=== PATIENT | female | born 1955 | race Caucasian/White ===

== ENCOUNTER 2019-04-03 05:57 | Inpatient (IN) | payer OTHER ==
[2019-04-03] MEDS: CEFAZOLIN 2 GM/50 ML (PMX) 50 ML IVPB (06:00)
[2019-04-03] MEDS: LACTATED RINGER'S 1,000 ML IV (07:03)
[2019-04-03] MEDS ORDERED: CEFAZOLIN 1 GM INJ (07:27)
[2019-04-03] MEDS ORDERED: PROPOFOL 20 ML (07:27)
[2019-04-03] MEDS ORDERED: MIDAZOLAM 1 MG/ML 2 ML INJ (07:27)
[2019-04-03] MEDS ORDERED: ROCURONIUM 50 MG INJ (07:27)
[2019-04-03] MEDS ORDERED: ONDANSETRON 4 MG INJ (07:51)
[2019-04-03] MEDS ORDERED: DEXAMETHASONE 4 MG/ML 5 ML INJ (07:51)
[2019-04-03] MEDS ORDERED: METOCLOPRAMIDE 10 MG INJ (07:51)
[2019-04-03] MEDS ORDERED: hydrALAzine 20 MG INJ IV (08:30)
[2019-04-03] MEDS ORDERED: HYDROmorphONE 1 MG/5 ML IV SYRINGE IV (08:30)
[2019-04-03] MEDS ORDERED: METOCLOPRAMIDE 10 MG INJ IV (08:30)
[2019-04-03] MEDS ORDERED: LABETALOL HCL 20MG INJ IV (08:30)
[2019-04-03] MEDS ORDERED: FENTAnyl 50 MCG/ML VIAL IV ×3 (08:30)
[2019-04-03] MEDS ORDERED: OXYCODONE/ACETAMINOPHEN (5/325) TAB PO (08:30)
[2019-04-03] MEDS ORDERED: EPHEDrine 25 MG/5 ML SYG IV (08:30)
[2019-04-03] MEDS: GELATIN SIZE 100 SPONGE (09:16)
[2019-04-03] MEDS: THROMBIN 5000 UNIT (RECOTHROM) VIAL (09:17)
[2019-04-03] MEDS: POLYMYXIN/BACITRACIN 1L IRRIG (09:17)
[2019-04-03] MEDS: HEMOSTATIC MATRIX/ THROMBIN 1 EA SYG ZFS ×3 (09:18→11:51)
[2019-04-03] MEDS: BUPIVACAINE 0.5%/EPI (SDV) 30 ML INJ (09:20)
[2019-04-03] MEDS: BUPIVACAINE 0.25%/EPI (SDV) 30 ML INJ (09:40)
[2019-04-03] MEDS ORDERED: SUGAMMADEX SODIUM 200 MG/2 ML VIAL IV (10:28)
[2019-04-03] MEDS: POLYMYXIN/BACITRACIN 1L IRRIG IRR (11:31)
[2019-04-03] MEDS ORDERED: NALOXONE (0.4 MG/ML) INJ IV ×2 (13:00)
[2019-04-03] MEDS ORDERED: PROCHLORPERAZINE 10 MG TAB PO (13:00)
[2019-04-03] MEDS ORDERED: NACL 0.9% 3 ML SYG IV (13:00)
[2019-04-03] MEDS: HYDROmorphONE 1 MG/5 ML IV SYRINGE IV ×2 (13:03→13:11)
[2019-04-03] MEDS: DIPHENHYDRAMINE 50 MG INJ IV (13:03)
[2019-04-03] MEDS: ONDANSETRON 4 MG INJ IV (13:03)
[2019-04-03] MEDS: MEPERIDINE 25 MG INJ IV (13:03)
[2019-04-03] MEDS: HYDROmorphONE 0.2 MG/ML PCA IV (13:10)
[2019-04-03 13:32] LABS: ADD MAN DIFF? NO
[2019-04-03 13:33] LABS: WHITE BLOOD COUNT 12.2 10^3/ul (4.8-10.8)
[2019-04-03 13:33] LABS: BASOPHILS % 0.1 % (0.0-2.0); HEMATOCRIT 29.1 % (37.0-47.0); HEMOGLOBIN 9.7 g/dl (12.0-16.0); LYMPHOCYTES # 0.6 10^3/ul (0.8-2.9); LYMPHOCYTES % 4.9 % (15.0-51.0); MEAN CORPUSCULAR HEMOGLOBIN 31.6 pg (29.0-33.0); MEAN CORPUSCULAR HGB CONC 33.3 g/dl (32.0-37.0); MEAN CORPUSCULAR VOLUME 94.8 fl (82.0-101.0); MEAN PLATELET VOLUME 9.2 fl (7.4-10.4); MONOCYTE # 0.1 10^3/ul (0.3-0.9); MONOCYTES % 0.7 % (0.0-11.0); NEUTROPHIL # 11.4 10^3/ul (1.6-7.5); NEUTROPHILS % 93.5 % (39.0-77.0); PLATELET COUNT 196 10^3/UL (140-415); RED BLOOD COUNT 3.07 10^6/ul (4.20-5.40); RED CELL DISTRIBUTION WIDTH 13.1 % (11.5-14.5)
[2019-04-03 13:40] LABS: HOLD TRANSMISSIONS 1
[2019-04-03] MEDS: SOD CHLORIDE 0.45% 1,000 ML IV (14:12)
[2019-04-03] MEDS: CEFAZOLIN 1 GM/50 ML (PMX) 50 ML IVPB (17:39)
[2019-04-03] MEDS: NEOMYC/POLYMYX/BACIT 30 GM OINT TOP (18:37)
[2019-04-03] MEDS ORDERED: MONTELUKAST 10 MG TAB PO (19:00)
[2019-04-03] MEDS: MONTELUKAST 10 MG TAB PO (20:50)
[2019-04-03] MEDS: LATANOPROST 0.005% 2.5 ML OPH RIGHT EYE (22:42)
[2019-04-04] MEDS: CEFAZOLIN 1 GM/50 ML (PMX) 50 ML IVPB ×3 (00:27→12:32)
[2019-04-04] MEDS: SOD CHLORIDE 0.45% 1,000 ML IV ×4 (01:51→22:52)
[2019-04-04] MEDS: HYDROmorphONE 0.2 MG/ML PCA IV ×2 (04:54→22:54)
[2019-04-04 05:19] LABS: HEMATOCRIT 32.3 % (37.0-47.0); HEMOGLOBIN 10.6 g/dl (12.0-16.0)
[2019-04-04 05:44] LABS: ANION GAP 5 (5-13); BLOOD UREA NITROGEN 10 mg/dl (7-20); CALCIUM 8.4 mg/dl (8.4-10.2); CARBON DIOXIDE 28 mmol/L (21-31); CHLORIDE 105 mmol/L (97-110); Estimated GFR > 60 mL/min (>60); GLUCOSE 110 mg/dl (70-220); POTASSIUM 4.8 mmol/L (3.5-5.1); SODIUM 138 mmol/L (135-144)
[2019-04-04] MEDS: NEOMYC/POLYMYX/BACIT 30 GM OINT TOP ×3 (05:55→21:53)
[2019-04-04] MEDS: DOCUSATE SODIUM 100 MG CAP PO ×2 (08:49→21:31)
[2019-04-04] MEDS: ACETAMINOPHEN 325 MG TAB PO (21:31)
[2019-04-04] MEDS: MONTELUKAST 10 MG TAB PO (21:31)
[2019-04-04] MEDS: LATANOPROST 0.005% 2.5 ML OPH RIGHT EYE (21:31)
[2019-04-04] MEDS: NAPHAZOLINE/PHENIRAMINE 15 ML OPH BOTH EYES (21:53)
[2019-04-05] MEDS: ACETAMINOPHEN 325 MG TAB PO (05:14)
[2019-04-05] MEDS: NEOMYC/POLYMYX/BACIT 30 GM OINT TOP ×3 (06:22→21:12)
[2019-04-05] MEDS: DOCUSATE SODIUM 100 MG CAP PO ×2 (08:26→21:13)
[2019-04-05] MEDS: HYDROCODONE/APAP (5/325) TAB PO ×4 (10:19→23:42)
[2019-04-05] MEDS: SOD CHLORIDE 0.45% 1,000 ML IV (10:21)
[2019-04-05 11:10] LABS: ADD MAN DIFF? NO
[2019-04-05 11:15] LABS: BASOPHILS % 0.2 % (0.0-2.0); EOSINOPHILS # 0.1 10^3/ul (0.0-0.5); EOSINOPHILS % 0.6 % (0.0-7.0); HEMATOCRIT 34.3 % (37.0-47.0); LYMPHOCYTES # 1.8 10^3/ul (0.8-2.9); LYMPHOCYTES % 15.3 % (15.0-51.0); MEAN CORPUSCULAR HEMOGLOBIN 31.1 pg (29.0-33.0); MEAN CORPUSCULAR HGB CONC 32.1 g/dl (32.0-37.0); MEAN CORPUSCULAR VOLUME 96.9 fl (82.0-101.0); MEAN PLATELET VOLUME 9.4 fl (7.4-10.4); MONOCYTE # 1.2 10^3/ul (0.3-0.9); MONOCYTES % 9.7 % (0.0-11.0); NEUTROPHIL # 8.8 10^3/ul (1.6-7.5); NEUTROPHILS % 73.9 % (39.0-77.0); PLATELET COUNT 232 10^3/UL (140-415); RED BLOOD COUNT 3.54 10^6/ul (4.20-5.40); RED CELL DISTRIBUTION WIDTH 13.6 % (11.5-14.5)
[2019-04-05] MEDS: ONDANSETRON 4 MG INJ IV (12:20)
[2019-04-05 12:30] LABS: ERYTHROCYTE SEDIMENTATION RATE 45 mm/Hr (0-30)
[2019-04-05] MEDS ORDERED: LORAZEPAM 2 MG INJ IV (15:00)
[2019-04-05 15:28] LABS: ADD UMIC YES; UR ASCORBIC ACID NEGATIVE (NEGATIVE); UR BILIRUBIN (Dip) NEGATIVE (NEGATIVE); UR BLOOD (Dip) 2+ mg/dL (NEGATIVE); UR CLARITY CLEAR (CLEAR); UR COLOR STRAW (YELLOW); UR GLUCOSE (Dip) NEGATIVE (NEGATIVE); UR KETONES (Dip) NEGATIVE (NEGATIVE); UR LEUKOCYTE ESTERASE (Dip) NEGATIVE Leu/ul (NEGATIVE); UR NITRITE (Dip) NEGATIVE (NEGATIVE); UR RBC 1 /HPF (0-5); UR SPECIFIC GRAVITY (Dip) 1.005 (1.003-1.030); UR TOTAL PROTEIN (Dip) NEGATIVE (NEGATIVE); UR UROBILINOGEN (Dip) NEGATIVE (NEGATIVE); UR WBC 1 /HPF (0-5)
[2019-04-05] MEDS: AL HYDROX/MG HYDROX/SIMETH 30 ML CUP PO (19:21)
[2019-04-05] MEDS: MONTELUKAST 10 MG TAB PO (21:12)
[2019-04-05] MEDS: LATANOPROST 0.005% 2.5 ML OPH RIGHT EYE (21:13)
[2019-04-06] MEDS: HYDROCODONE/APAP (5/325) TAB PO ×5 (03:43→17:51)
[2019-04-06] MEDS: AL HYDROX/MG HYDROX/SIMETH 30 ML CUP PO ×2 (03:56→13:54)
[2019-04-06 05:27] LABS: ADD MAN DIFF? NO
[2019-04-06 05:40] LABS: WHITE BLOOD COUNT 11.3 10^3/ul (4.8-10.8)
[2019-04-06 05:40] LABS: BASOPHILS % 0.4 % (0.0-2.0); EOSINOPHILS # 0.3 10^3/ul (0.0-0.5); EOSINOPHILS % 2.2 % (0.0-7.0); HEMATOCRIT 34.7 % (37.0-47.0); HEMOGLOBIN 11.2 g/dl (12.0-16.0); LYMPHOCYTES # 2.2 10^3/ul (0.8-2.9); LYMPHOCYTES % 19.7 % (15.0-51.0); MEAN CORPUSCULAR HEMOGLOBIN 31.2 pg (29.0-33.0); MEAN CORPUSCULAR HGB CONC 32.3 g/dl (32.0-37.0); MEAN CORPUSCULAR VOLUME 96.7 fl (82.0-101.0); MEAN PLATELET VOLUME 9.6 fl (7.4-10.4); MONOCYTE # 0.9 10^3/ul (0.3-0.9); NEUTROPHIL # 7.8 10^3/ul (1.6-7.5); NEUTROPHILS % 69.3 % (39.0-77.0); PLATELET COUNT 255 10^3/UL (140-415); RED BLOOD COUNT 3.59 10^6/ul (4.20-5.40); RED CELL DISTRIBUTION WIDTH 13.3 % (11.5-14.5)
[2019-04-06 06:21] LABS: ANION GAP 5 (5-13); BLOOD UREA NITROGEN 4 mg/dl (7-20); CALCIUM 8.5 mg/dl (8.4-10.2); CARBON DIOXIDE 32 mmol/L (21-31); CHLORIDE 103 mmol/L (97-110); CREATININE 0.58 mg/dl (0.44-1.00); Estimated GFR > 60 mL/min (>60); GLUCOSE 132 mg/dl (70-220); POTASSIUM 3.5 mmol/L (3.5-5.1); SODIUM 140 mmol/L (135-144)
[2019-04-06 07:21] LABS: ERYTHROCYTE SEDIMENTATION RATE 60 mm/Hr (0-30)
[2019-04-06] MEDS: DOCUSATE SODIUM 100 MG CAP PO (09:37)
== END 2019-04-06 18:50 | DRG 455 ==
LOC: REC 05:57 → MS1 13:52
PROVIDERS: Orthopaedic Surgery
PROC: 0SG00AJ Fusion of Lumbar Vertebral Joint with Interbody Fusion Device, Posterior Approach, Anterior Column, Open Approach (ICD-10-PCS; principal; 2019-04-03 07:30)
PROC: 0SG00K1 Fusion of Lumbar Vertebral Joint with Nonautologous Tissue Substitute, Posterior Approach, Posterior Column, Open Approach (ICD-10-PCS; 2019-04-03 07:30)
PROC: 0SB20ZZ Excision of Lumbar Vertebral Disc, Open Approach (ICD-10-PCS; 2019-04-03 07:30)
PROC: 4A11X4G Monitoring of Peripheral Nervous Electrical Activity, Intraoperative, External Approach (ICD-10-PCS; 2019-04-03 07:30)
DX: M43.16 Spondylolisthesis, lumbar region (principal); M48.061 Spinal stenosis, lumbar region without neurogenic claudication; M51.16 Intervertebral disc disorders with radiculopathy, lumbar region; M81.0 Age-related osteoporosis without current pathological fracture; M19.90 Unspecified osteoarthritis, unspecified site; J45.30 Mild persistent asthma, uncomplicated; H40.9 Unspecified glaucoma; Z96.652 Presence of left artificial knee joint
CPT/HCPCS: 72100; 72110; 80048; 81001; 85014; 85018; 85025; 85651; 87040-91; 87086; 97116; 97162; 97530

== ENCOUNTER 2019-04-06 19:10 | Inpatient (IN) | payer OTHER ==
[2019-04-06] MEDS ORDERED: PROCHLORPERAZINE 10 MG TAB PO (20:00)
[2019-04-06] MEDS ORDERED: ACETAMINOPHEN 325 MG TAB PO (20:00)
[2019-04-06] MEDS ORDERED: MAGNESIUM HYDROXIDE 30ML CUP PO (20:00)
[2019-04-06] MEDS ORDERED: BISACODYL 10 MG SUPP PR (20:00)
[2019-04-06] MEDS ORDERED: PENDING SANTYL ORDER FOR WOUND CARE XX (20:00)
[2019-04-06] MEDS ORDERED: AL HYDROX/MG HYDROX/SIMETH 30 ML CUP PO (20:00)
[2019-04-06] MEDS ORDERED: ONDANSETRON 4 MG INJ IV (20:00)
[2019-04-06] MEDS ORDERED: LORAZEPAM 2 MG INJ IV (20:00)
[2019-04-06] MEDS ORDERED: NALOXONE (0.4 MG/ML) INJ IV (20:00)
[2019-04-06] MEDS: SENNA TAB PO (22:04)
[2019-04-06] MEDS: MONTELUKAST 10 MG TAB PO (22:04)
[2019-04-06] MEDS: DOCUSATE SODIUM 100 MG CAP PO (22:04)
[2019-04-06] MEDS: NEOMYC/POLYMYX/BACIT 30 GM OINT TOP (22:06)
[2019-04-06] MEDS: LATANOPROST 0.005% 2.5 ML OPH RIGHT EYE (22:06)
[2019-04-06] MEDS: HYDROCODONE/APAP (5/325) TAB PO (22:07)
[2019-04-06] MEDS: NAPHAZOLINE 0.012% 15 ML OPH BOTH EYES (22:13)
[2019-04-07 01:27] LABS: ADD UMIC NO; UR ASCORBIC ACID NEGATIVE (NEGATIVE); UR BILIRUBIN (Dip) NEGATIVE (NEGATIVE); UR BLOOD (Dip) NEGATIVE (NEGATIVE); UR CLARITY CLEAR (CLEAR); UR COLOR STRAW (YELLOW); UR GLUCOSE (Dip) NEGATIVE (NEGATIVE); UR KETONES (Dip) NEGATIVE (NEGATIVE); UR LEUKOCYTE ESTERASE (Dip) NEGATIVE Leu/ul (NEGATIVE); UR NITRITE (Dip) NEGATIVE (NEGATIVE); UR SPECIFIC GRAVITY (Dip) 1.005 (1.003-1.030); UR TOTAL PROTEIN (Dip) NEGATIVE (NEGATIVE); UR UROBILINOGEN (Dip) NEGATIVE (NEGATIVE)
[2019-04-07] MEDS: HYDROCODONE/APAP (5/325) TAB PO ×5 (03:21→20:24)
[2019-04-07 08:04] LABS: ADD MAN DIFF? NO
[2019-04-07] MEDS: DOCUSATE SODIUM 100 MG CAP PO ×2 (08:11→20:24)
[2019-04-07 08:13] LABS: WHITE BLOOD COUNT 8.8 10^3/ul (4.8-10.8)
[2019-04-07 08:13] LABS: BASOPHILS % 0.3 % (0.0-2.0); EOSINOPHILS # 0.3 10^3/ul (0.0-0.5); EOSINOPHILS % 3.3 % (0.0-7.0); HEMATOCRIT 33.3 % (37.0-47.0); HEMOGLOBIN 10.9 g/dl (12.0-16.0); LYMPHOCYTES # 1.5 10^3/ul (0.8-2.9); LYMPHOCYTES % 17.4 % (15.0-51.0); MEAN CORPUSCULAR HEMOGLOBIN 31.2 pg (29.0-33.0); MEAN CORPUSCULAR HGB CONC 32.7 g/dl (32.0-37.0); MEAN CORPUSCULAR VOLUME 95.4 fl (82.0-101.0); MEAN PLATELET VOLUME 9.8 fl (7.4-10.4); MONOCYTE # 0.7 10^3/ul (0.3-0.9); MONOCYTES % 7.5 % (0.0-11.0); NEUTROPHIL # 6.3 10^3/ul (1.6-7.5); NEUTROPHILS % 71.2 % (39.0-77.0); PLATELET COUNT 322 10^3/UL (140-415); RED BLOOD COUNT 3.49 10^6/ul (4.20-5.40); RED CELL DISTRIBUTION WIDTH 13.4 % (11.5-14.5)
[2019-04-07 08:36] LABS: ALANINE AMINOTRANSFERASE 72 IU/L (13-69); ALBUMIN 3.3 g/dl (3.3-4.9); ALBUMIN/GLOBULIN RATIO 1.17; ALKALINE PHOSPHATASE 178 IU/L (42-121); ANION GAP 7 (5-13); ASPARTATE AMINO TRANSFERASE 62 IU/L (15-46); BILIRUBIN,INDIRECT 0.5 mg/dl (0-1.1); BILIRUBIN,TOTAL 0.5 mg/dl (0.2-1.3); BLOOD UREA NITROGEN 8 mg/dl (7-20); CALCIUM 8.6 mg/dl (8.4-10.2); CARBON DIOXIDE 27 mmol/L (21-31); CHLORIDE 105 mmol/L (97-110); CREATININE 0.58 mg/dl (0.44-1.00); Estimated GFR > 60 mL/min (>60); GLUCOSE 106 mg/dl (70-220); POTASSIUM 3.6 mmol/L (3.5-5.1); SODIUM 139 mmol/L (135-144); TOTAL PROTEIN 6.1 g/dl (6.1-8.1)
[2019-04-07] MEDS: LACTULOSE 30ML CUP PO (13:47)
[2019-04-07] MEDS: MONTELUKAST 10 MG TAB PO (20:24)
[2019-04-07] MEDS: SENNA TAB PO (20:24)
[2019-04-07] MEDS: LATANOPROST 0.005% 2.5 ML OPH RIGHT EYE (21:29)
[2019-04-07] MEDS: NEOMYC/POLYMYX/BACIT 30 GM OINT TOP (21:29)
[2019-04-07] MEDS: NAPHAZOLINE 0.012% 15 ML OPH BOTH EYES (21:35)
[2019-04-08] MEDS: HYDROCODONE/APAP (5/325) TAB PO ×6 (00:39→20:57)
[2019-04-08] MEDS: DOCUSATE SODIUM 100 MG CAP PO ×2 (08:25→20:35)
[2019-04-08] MEDS: NAPHAZOLINE 0.012% 15 ML OPH BOTH EYES (20:35)
[2019-04-08] MEDS: MONTELUKAST 10 MG TAB PO (20:35)
[2019-04-08] MEDS: SENNA TAB PO (20:35)
[2019-04-08] MEDS: NEOMYC/POLYMYX/BACIT 30 GM OINT TOP (20:36)
[2019-04-08] MEDS: LATANOPROST 0.005% 2.5 ML OPH RIGHT EYE (20:36)
[2019-04-09] MEDS: HYDROCODONE/APAP (5/325) TAB PO ×6 (01:59→20:59)
[2019-04-09] MEDS: DOCUSATE SODIUM 100 MG CAP PO ×2 (09:08→20:59)
[2019-04-09] MEDS: NAPHAZOLINE 0.012% 15 ML OPH BOTH EYES ×2 (09:09→21:10)
[2019-04-09] MEDS: DOCOSANOL 2 GM CREAM TOP (09:57)
[2019-04-09] MEDS ORDERED: USP TOP (12:30)
[2019-04-09] MEDS ORDERED: ACYCLOVIR TOP (12:30)
[2019-04-09] MEDS: valACYclovir 500 MG TAB PO ×2 (13:48→20:59)
[2019-04-09] MEDS: ACYCLOVIR TOP ×4 (13:49→21:11)
[2019-04-09] MEDS: USP TOP ×4 (13:49→21:11)
[2019-04-09] MEDS: SENNA TAB PO (20:59)
[2019-04-09] MEDS: MONTELUKAST 10 MG TAB PO (20:59)
[2019-04-09] MEDS: LATANOPROST 0.005% 2.5 ML OPH RIGHT EYE (20:59)
[2019-04-09] MEDS: NEOMYC/POLYMYX/BACIT 30 GM OINT TOP (21:01)
[2019-04-10] MEDS: HYDROCODONE/APAP (5/325) TAB PO ×5 (01:33→21:09)
[2019-04-10] MEDS: DOCUSATE SODIUM 100 MG CAP PO ×2 (09:23→21:09)
[2019-04-10] MEDS: valACYclovir 500 MG TAB PO ×3 (09:23→21:09)
[2019-04-10] MEDS: ACYCLOVIR TOP ×5 (09:24→21:15)
[2019-04-10] MEDS: USP TOP ×5 (09:24→21:15)
[2019-04-10] MEDS: MONTELUKAST 10 MG TAB PO (21:09)
[2019-04-10] MEDS: SENNA TAB PO (21:09)
[2019-04-10] MEDS: LATANOPROST 0.005% 2.5 ML OPH RIGHT EYE (21:12)
[2019-04-11] MEDS: HYDROCODONE/APAP (5/325) TAB PO ×6 (02:15→19:46)
[2019-04-11] MEDS: valACYclovir 500 MG TAB PO ×3 (08:15→21:00)
[2019-04-11] MEDS: DOCUSATE SODIUM 100 MG CAP PO ×2 (08:15→20:59)
[2019-04-11] MEDS: USP TOP ×5 (08:17→21:03)
[2019-04-11] MEDS: ACYCLOVIR TOP ×5 (08:17→21:03)
[2019-04-11] MEDS: MONTELUKAST 10 MG TAB PO (20:59)
[2019-04-11] MEDS: SENNA TAB PO (20:59)
[2019-04-11] MEDS: NEOMYC/POLYMYX/BACIT 30 GM OINT TOP (21:01)
[2019-04-11] MEDS: NAPHAZOLINE 0.012% 15 ML OPH BOTH EYES (21:01)
[2019-04-11] MEDS: LATANOPROST 0.005% 2.5 ML OPH RIGHT EYE (21:01)
[2019-04-12] MEDS: HYDROCODONE/APAP (5/325) TAB PO ×4 (00:33→12:58)
[2019-04-12] MEDS: DOCUSATE SODIUM 100 MG CAP PO (08:28)
[2019-04-12] MEDS: ACYCLOVIR TOP ×2 (08:29→12:28)
[2019-04-12] MEDS: USP TOP ×2 (08:29→12:28)
[2019-04-12] MEDS: valACYclovir 500 MG TAB PO ×2 (08:29→12:28)
== END 2019-04-12 13:45 | disposition home health service (06) | DRG 560 ==
LOC: VRC 19:10
DX: Z47.89 Encounter for other orthopedic aftercare (principal); B00.2 Herpesviral gingivostomatitis and pharyngotonsillitis; G89.18 Other acute postprocedural pain; J45.909 Unspecified asthma, uncomplicated; H40.9 Unspecified glaucoma; G56.00 Carpal tunnel syndrome, unspecified upper limb; M81.0 Age-related osteoporosis without current pathological fracture; Z96.652 Presence of left artificial knee joint; J30.9 Allergic rhinitis, unspecified
CPT/HCPCS: 80053; 81003; 85025; 87081; 87086; 97110; 97116; 97163; 97166; 97530; 97535